=== PATIENT | female | born 1985 | race Caucasian/White ===

== ENCOUNTER 2017-01-17 10:45 | Emergency (ER) | payer BC, OTHER ==
[2017-01-17 10:52] VITALS: TEMP 97.4
[2017-01-17] MEDS ORDERED: SODIUM CHLORIDE 0.9% 1,000 ML IV STA ×2 (11:13→12:44)
[2017-01-17] MEDS ORDERED: SODIUM CHLORIDE 0.9% 500 ML IV STA (11:13)
[2017-01-17] MEDS ORDERED: ONDANSETRON 4 MG/2 ML VIAL IVP STA (11:13)
[2017-01-17] MEDS ORDERED: diphenhydrAMINE 50 MG/ML 1 ML VIAL IVP STA (11:14)
[2017-01-17] MEDS ORDERED: PYRIDOXINE 100 MG/ML 1 ML VIAL IVP STA (11:14)
[2017-01-17] MEDS: SODIUM CHLORIDE 0.9% 1,000 ML IV STA ×2 (11:19→12:49)
[2017-01-17 11:25] LABS: Basophils % (A) 0 %; CH 26.8; CHCM 32.9; Eosinophils # (A) 0.1 k/uL (0-0.7); Eosinophils % (A) 1 %; HCT 46.1 % (34.0-46.0); HDW 2.45; HGB 14.5 gm/dL (11.4-16.0); Luc # (Auto) 0.06; Luc % (Auto) 1; Lymphocytes # (A) 0.3 k/uL (1.0-4.8); Lymphocytes % (A) 4 %; MCH 25.8 pg (25.0-35.0); MCHC 31.4 g/dL (31.0-37.0); MCV 82.1 fL (80.0-100.0); Mean Platelet Volume 7.2; Monocytes # (A) 0.3 k/uL (0-1.0); Monocytes % (A) 4 %; Neutrophils # (A) 7.5 k/uL (1.3-7.7); Neutrophils % (A) 91 %; RBC 5.61 m/uL (3.80-5.40); RDW 14.9 % (11.5-15.5); WBC 8.3 k/uL (3.8-10.6); WBC (Perox) 8.24
--- NOTE | 2017-01-17 11:25 | ED ---
General Adult HPI - General Chief complaint: Nausea/Vomiting/Diarrhea Stated complaint: 16weeks preg nausea/vomiting Time Seen by Provider: 01/17/17 11:13 Source: patient, RN notes reviewed, old records reviewed Mode of arrival: ambulatory Limitations: no limitations - History of Present Illness Initial comments: This is a 31-year-old female to the ER for evaluation. This patient presents evaluation of nausea vomiting and diarrhea. Patient's positive 16 weeks . Patient prior . No problems with nausea vomiting or diarrhea during . Patient also admits to [facility] with similar illnesses. No fevers. No travel history. Patient denies any significant pain - Related Data Home Medications Medication Instructions Recorded Confirmed Vit No.124/Iron/Folic 1 tab PO HS 01/02/15 01/17/17 [ Vitamin Tablet] Allergies Allergy/AdvReac Type Severity Reaction Status Date / Time Penicillins AdvReac Rash/Hives Verified 01/17/17 11:55 Review of Systems ROS Statement: Those systems with pertinent positive or pertinent negative responses have been documented in the HPI. ROS Other: All systems not noted in ROS Statement are negative. Past Medical History Past Medical History: No Reported History History of Any Multi-Drug Resistant Organisms: None Reported Past Surgical History: Cholecystectomy Additional Past Surgical History / Comment(s): cauterization of the cervix, D&C Past Anesthesia/Blood Transfusion Reactions: No Reported Reaction Past Psychological History: Anxiety Smoking Status: Never smoker Past Alcohol Use History: None Reported Past Drug Use History: None Reported - Past Family History Mother Family Medical History: Hypertension Additional Family Medical History / Comment(s): M.S. Father Family Medical History: Hypertension Additional Family Medical History / Comment(s): acute leukemia General Exam Limitations: no limitations General appearance: alert, in no apparent distress Head exam: Present: atraumatic, normocephalic, normal inspection Eye exam: Present: normal appearance, PERRL, EOMI. Absent: scleral icterus, conjunctival injection, periorbital swelling ENT exam: Present: normal exam, mucous membranes moist Neck exam: Present: normal inspection. Absent: tenderness, meningismus, lymphadenopathy Respiratory exam: Present: normal lung sounds bilaterally. Absent: respiratory distress, wheezes, rales, rhonchi, stridor Cardiovascular Exam: Present: normal rhythm, tachycardia, normal heart sounds. Absent: systolic murmur, diastolic murmur, rubs, gallop, clicks GI/Abdominal exam: Present: soft, normal bowel sounds. Absent: distended, tenderness, guarding, rebound, rigid Extremities exam: Present: normal inspection, full ROM, normal capillary refill. Absent: tenderness, pedal edema, joint swelling, calf tenderness Back exam: Present: normal inspection Neurological exam: Present: alert, oriented X3, CN II-XII intact Psychiatric exam: Present: normal affect, normal mood Skin exam: Present: warm, dry, intact, normal color. Absent: rash Course Vital Signs 01/17/17 10:50 Temperature 97.4 F L Pulse Rate 120 H Respiratory 18 Rate Blood Pressure 117/78 O2 Sat by Pulse 98 Oximetry - Reevaluation(s) Reevaluation #1: 01/17/17 12:45 heart tones done at bedside Reevaluation #2: 01/17/17 12:45 Patient is doing better with no active vomiting or diarrhea Medical Decision Making - Medical Decision Making 31 female to ER for evaluation regards to nausea vomiting diarrhea, patient had exposure to sick contacts that she lives with. Patient's family members have similar symptoms. Heart tones are positive labwork is normal mildly dehydrated on exam, patient given adequate hydration here in the emergency room and feeling much improved. Will be discharged home - Lab Data Result diagrams: 01/17/17 11:14 01/17/17 11:14 Lab Results 01/17/17 01/17/17 Range/Units 11:14 11:14 WBC 8.3 (3.8-10.6) k/uL RBC 5.61 H (3.80-5.40) m/uL Hgb 14.5 (11.4-16.0) gm/dL Hct 46.1 H (34.0-46.0) % MCV 82.1 (80.0-100.0) fL MCH 25.8 (25.0-35.0) pg MCHC 31.4 (31.0-37.0) g/dL RDW 14.9 (11.5-15.5) % Plt Count 247 (150-450) k/uL Neutrophils % 91 % Lymphocytes % 4 % Monocytes % 4 % Eosinophils % 1 % Basophils % 0 % Neutrophils # 7.5 (1.3-7.7) k/uL Lymphocytes # 0.3 L (1.0-4.8) k/uL Monocytes # 0.3 (0-1.0) k/uL Eosinophils # 0.1 (0-0.7) k/uL Basophils # 0.0 (0-0.2) k/uL Sodium 140 (137-145) mmol/L Potassium 3.9 (3.5-5.1) mmol/L Chloride 108 H (98-107) mmol/L Carbon Dioxide 15 L (22-30) mmol/L Anion Gap 17 mmol/L BUN 11 (7-17) mg/dL Creatinine 0.53 (0.52-1.04) mg/dL Est GFR (MDRD) Af Amer >60 (>60 ml/min/1.73 sqM) Est GFR (MDRD) Non-Af >60 (>60 ml/min/1.73 sqM) Glucose 118 H (74-99) mg/dL Calcium 9.4 (8.4-10.2) mg/dL Phosphorus 5.2 H (2.5-4.5) mg/dL Magnesium 1.6 (1.6-2.3) mg/dL Total Bilirubin 0.5 (0.2-1.3) mg/dL AST 17 (14-36) U/L ALT 24 (9-52) U/L Alkaline Phosphatase 66 (38-126) U/L Total Protein 7.5 (6.3-8.2) g/dL Albumin 4.1 (3.5-5.0) g/dL Disposition Clinical Impression: Food poisoning, Dehydration, Gastroenteritis Disposition: HOME SELF-CARE Condition: Good Instructions: Acute Nausea and Vomiting (ED), Acute Diarrhea (ED) Referrals: None,Stated [Primary Care Provider] - 1-2 days
[2017-01-17 11:37] LABS: ALT 24 U/L (9-52); AST 17 U/L (14-36); Alkaline Phosphatase 66 U/L (38-126); Anion Gap 17 mmol/L; Blood Urea Nitrogen 11 mg/dL (7-17); Calcium 9.4 mg/dL (8.4-10.2); Carbon Dioxide 15 mmol/L (22-30); Chloride 108 mmol/L (98-107); Glucose 118 mg/dL (74-99); Magnesium 1.6 mg/dL (1.6-2.3); Non-African American GFR(MDRD) >60 (>60 ml/min/1.73 sqM); Phosphorus 5.2 mg/dL (2.5-4.5); Potassium 3.9 mmol/L (3.5-5.1); Sodium 140 mmol/L (137-145); Total Bilirubin 0.5 mg/dL (0.2-1.3); Total Protein 7.5 g/dL (6.3-8.2)
[2017-01-17 13:20] VITALS: BP 110/72; PULSE 96; RESP 16
[2017-01-17 13:44] LABS: Appearance,Urine Cloudy (Clear); Bilirubin,Urine Negative (Negative); Glucose,Urine (UA) Negative (Negative); Ketones,Urine 4+ (Negative); Leukocyte Esterase,Urine Negative (Negative); Mucus,Urine Many /hpf; Nitrite,Urine Negative (Negative); PH, Urine 5.5 (5.0-8.0); Particle Count 15647; Protein,Urine 1+ (Negative); RBC,Urine <1 /hpf (0-5); Specific Gravity,Urine 1.028 (1.001-1.035); Squamous Epithelial Cell,Urine 7 /hpf (0-4); UA Billing (MACRO vs. MICRO) MICRO; Urobilinogen,Urine <2.0 mg/dL (<2.0); WBC,Urine 3 /hpf (0-5)
== END 2017-01-17 13:48 | disposition home or self-care (01) ==
LOC: EC 10:45
DX: O99.612 Diseases of the digestive system complicating pregnancy, second trimester (principal); K52.9 Noninfective gastroenteritis and colitis, unspecified; O99.282 Endocrine, nutritional and metabolic diseases complicating pregnancy, second trimester; E86.0 Dehydration; O98.812 Other maternal infectious and parasitic diseases complicating pregnancy, second trimester; A05.9 Bacterial foodborne intoxication, unspecified; O99.89 Other specified diseases and conditions complicating pregnancy, childbirth and the puerperium; R00.0 Tachycardia, unspecified; Z79.899 Other long term (current) drug therapy; Z88.0 Allergy status to penicillin; Z90.49 Acquired absence of other specified parts of digestive tract; Z3A.16 16 weeks gestation of pregnancy; Z53.20 Procedure and treatment not carried out because of patient's decision for unspecified reasons
CPT/HCPCS: 36415; 80053; 83735; 84100; 85025; 81001; 87086; 99284; 96374; 96375; 96361 ×2; J3415; J2405

== ENCOUNTER 2017-04-12 13:18 | Outpatient (CLI) | payer OTHER ==
[2017-04-12 14:26] VITALS: BP 131/80; PULSE 96; RESP 14; TEMP 97.9
--- NOTE | 2017-05-05 16:45 | P.MSEPDOC ---
Presenting Problems - Arrival Data Date of Arrival on Unit: 04/12/17 Time of Arrival on Unit: 13:19 Mode of Transport: Ambulatory - Complaint OB-Reason for Admission/Chief Complaint: Rule Out PROM Comment: muscle pull and r/o prom. damp since yesterday Medical History - Information : 4 Para: 1 Term: 0 : 0 Abortions: Spontaneous or Elective: 2 Number of Living Children: 1 - Gestational Age Gestational Age by JUSTIN (wks/days): 28 Weeks and 5 Days Review of Systems - Review of Systems Constitutional: No problems Breast: No problems ENT: No problems Cardiovascular: No problems Respiratory: No problems Gastrointestinal: No problems Genitourinary: No problems Musculoskeletal: No problems Neurological: No problems Skin: No problems Vital Signs - Temperature Temperature: 97.9 F Temperature Source: Temporal Artery Scan - Pulse Right Brachial Pulse Rate: 96 Pulse Assessment Method: Automatic Cuff - Respirations Respiratory Rate: 14 Oxygen Delivery Method: Room Air - Blood Pressure Right Arm Blood Pressure: 131/80 Blood Pressure Mean: 97 Blood Pressure Source: Automatic Cuff Medical Screen Scoring (Pre) - Cervical Exam Dilation: Exam Deferred - Uterine Contractions Frequency: N/A Duration: N/A Intensity: N/A - Maternal Vital Signs Maternal Temperature: N/A Maternal Blood Pressure: N/A Signs of Preeclampsia: N/A Maternal Respirations: N/A - Pain Assessment Pain Location and Character: Left, Right, Lateral, Abdomen Pain Scale Used: Numeric (1 - 10) Pain Intensity: 5 Pain Description: *Acute Pain Frequency: Frequent Pain Duration: 2 Pain Duration Units: Days Pain Behavior: None Exhibited Pain Aggravating Factors: Activity - Maternal Trauma Maternal Trauma: N/A - Assessment Baseline FHR: 135 Heart Rate - NICHD Category: Category I (Normal) = 0 NST: Reactive Position: N/A Station: N/A - Total Score Total Score (Pre): 0 - Level of Risk Level of Risk: N/A Physician Notification (Pre) - Physician Notified Physician Notified Date: 04/12/17 Physician Notified Time: 13:57 Physician/Practitioner Notifed:: antonia Spoke With: antonia New Order Received: Yes - Notification Comment Comment: pt may be discharged home with instruction, discuss comfort measures Disposition - Disposition OB Disposition: Discharge to home Discharge Date: 04/12/17 Discharge Time: 14:10 I agree with the RN Medical Screening Exam: Yes Risk & Benefit of care provided described in d/c instruction: Yes Diagnosis: FALSE LABOR BEFORE 37 COMPLETED WEEKS OF GEST, THIRD TRI
== END 2017-04-12 14:10 | disposition home or self-care (01) ==
LOC: FBPOP 13:18
PROVIDERS: ATTEND Obstetrics & Gynecology Obstetrics
DX: O47.03 False labor before 37 completed weeks of gestation, third trimester (principal); Z3A.28 28 weeks gestation of pregnancy
CPT/HCPCS: 59025; 84112; 99213

== ENCOUNTER 2017-06-18 05:10 | Inpatient (IN) | payer OTHER ==
[2017-06-18] MEDS ORDERED: TERBUTALINE 1 MG/ML VIAL SQ PRN (05:53)
[2017-06-18] MEDS ORDERED: METHYLERGONOVINE 0.2 MG/ML 1 ML AMP IM PRN (05:53)
[2017-06-18] MEDS ORDERED: OXYTOCIN 10 UNIT/ML 1 ML VIAL IM PRN (05:53)
[2017-06-18] MEDS ORDERED: CARBOPROST TROMETHAMINE 250 MCG/ML 1 ML AMP IM PRN (05:53)
[2017-06-18] MEDS ORDERED: LIDOCAINE 1% (PF) 10 MG/ML (30 ML SDV) SQ PRN (05:53)
[2017-06-18] MEDS ORDERED: BUTORPHANOL 1 MG/ML 1 ML VIAL IV PRN (05:55)
[2017-06-18] MEDS ORDERED: OXYTOCIN 20 UNITS/1000 ML NS 1,000 ML IV SCH ×2 (06:00→08:15)
[2017-06-18] MEDS ORDERED: LACTATED RINGERS 1,000 ML IV SCH (06:00)
[2017-06-18 06:12] VITALS: BMI 38.2
[2017-06-18 06:12] LABS: Basophils % (A) 0 %; Eosinophils # (A) 0.1 k/uL (0-0.7); Eosinophils % (A) 1 %; HCT 38.9 % (34.0-46.0); HGB 12.6 gm/dL (11.4-16.0); Lymphocytes # (A) 2.1 k/uL (1.0-4.8); Lymphocytes % (A) 20 %; MCHC 32.4 g/dL (31.0-37.0); MCV 77.2 fL (80.0-100.0); Mean Platelet Volume 8.2; Microcytosis Slight; Monocytes # (A) 0.6 k/uL (0-1.0); Monocytes % (A) 6 %; Neutrophils # (A) 7.8 k/uL (1.3-7.7); Neutrophils % (A) 72 %; Platelet Count 233 k/uL (150-450); RBC 5.04 m/uL (3.80-5.40); RDW 15.7 % (11.5-15.5); WBC 10.8 k/uL (3.8-10.6)
[2017-06-18] MEDS ORDERED: BUPIVACAINE (PF) 0.25% 30 ML VIAL ONE (06:39)
[2017-06-18] MEDS ORDERED: SODIUM CHLORIDE 0.9% 100 ML BAG ONE (06:39)
[2017-06-18] MEDS ORDERED: fentaNYL (PF) 50 MCG/ML 5 ML AMP ONE (06:39)
[2017-06-18] MEDS ORDERED: ACETAMINOPHEN TAB 325 MG TAB PO PRN (08:12)
[2017-06-18] MEDS ORDERED: diphenhydrAMINE 50 MG/ML 1 ML VIAL IVP PRN ×2 (08:12)
[2017-06-18] MEDS ORDERED: WITCH HAZEL 1 EACH MED..PAD TOPICAL PRN (08:12)
[2017-06-18] MEDS ORDERED: ZOLPIDEM 5 MG TAB PO PRN (08:12)
[2017-06-18] MEDS ORDERED: SIMETHICONE 80 MG CHEWABLE PO PRN (08:12)
[2017-06-18] MEDS ORDERED: LANOLIN CREAM 5 GM TUBE TOPICAL PRN (08:12)
[2017-06-18] MEDS ORDERED: HYDROcodone/APAP 5-325MG 1 EACH TAB PO PRN (08:12)
[2017-06-18] MEDS ORDERED: HYDROCORTISONE 2.5% RECTAL CREAM 30 GM TUBE RECTAL PRN (08:12)
[2017-06-18] MEDS ORDERED: diphenhydrAMINE 25 MG CAP PO PRN (08:12)
[2017-06-18] MEDS ORDERED: BENZOCAINE/MENTHOL SPRAY 1 GM/SPRAY AEROSOL TOPICAL PRN (08:12)
[2017-06-18] MEDS ORDERED: diphenhydrAMINE 50 MG CAP PO PRN (08:12)
--- NOTE | 2017-06-18 08:18 | P.HPOB ---
History of Present Illness H&P Date: 06/18/17 Chief Complaint: 38-2/7 weeks, spontaneous rupture of membranes, labor The patient is a 32-year-old 4 para 1021 admitted at 38-2/7 weeks as established by last menstrual period and confirmed by second trimester ultrasound. She is admitted with documented spontaneous rupture of membranes in early active labor with all signs reassuring. Her has been uncomplicated though she carries a history of a LEEP procedure in the past which has not caused any issues during the . Group B strep status is negative. Obstetrical history: 4 para 1021 with 1 term vaginal delivery without complications proceeded by 2 early miscarriages one of which required D&C. Current statistics are listed in history present illness. EDC of was established by last menstrual period and confirmed by second trimester ultrasound. Laboratory workup demonstrates a blood type of O+ with a negative antibody screen. The remainder of laboratory workup was within normal limits. Rubella status is immune. Early Glucola was within normal limits as well as second trimester Glucola. Group B strep status is negative. Gynecologic history: Unremarkable with no history of any infections to include STDs. Review of Systems Review of systems is confined to history of present illness. Past Medical History Past Medical History: No Reported History History of Any Multi-Drug Resistant Organisms: None Reported Past Surgical History: Cholecystectomy Additional Past Surgical History / Comment(s): cauterization of the cervix, D&C Past Anesthesia/Blood Transfusion Reactions: No Reported Reaction Past Psychological History: Anxiety Smoking Status: Never smoker Past Alcohol Use History: None Reported Past Drug Use History: None Reported - Past Family History Mother Family Medical History: Hypertension Additional Family Medical History / Comment(s): M.S. Father Family Medical History: Hypertension Additional Family Medical History / Comment(s): acute leukemia Medications and Allergies Home Medications Medication Instructions Recorded Confirmed Type Vit No.124/Iron/Folic 1 tab PO HS 01/02/15 06/18/17 History [ Vitamin Tablet] Allergies Allergy/AdvReac Type Severity Reaction Status Date / Time Penicillins AdvReac Rash/Hives Verified 06/18/17 05:19 Exam - Vital Signs Vital signs: Vital Signs Temp Pulse Resp BP Pulse Ox 06/18/17 05:50 96.3 F L 90 18 143/91 98 06/18/17 05:47 96.3 F L 90 18 143/91 98 Intake and Output 06/17/17 06/18/17 06/18/17 22:59 06:59 14:59 Intake Total 1.85 Balance 1.85 Intake: Intake, IV Titration 1.85 Amount Oxytocin 20 Units/1000 ml 1.85 Ns 1,000 ml @ 1 MILLIUNIT/MIN 3 mls/hr IV .Q24H [facility] Rx#:[id number] Other: # Voids 1 Weight 97.976 kg In general, this is a well-developed, well-nourished white female in no acute distress. Her heart has a regular rhythm and rate without murmur. Her lungs are clear to auscultation bilaterally in all woods. Her abdomen is gravid, nondistended, has normal active bowel sounds, is soft, nontender, and without any palpable masses aside from uterine fundus. Her extremities without any cyanosis, clubbing, or significant edema and are nontender to palpation bilaterally. Digital cervical examination at the time of my presentation demonstrates her cervix to be completely dilated with the vertex in presentation at 0 to +1 station. Spontaneous rupture of membranes has been previously confirmed. Results Result Diagrams: 06/18/17 05:55 Abnormal Lab Results - Last 24 Hours (Table) 06/18/17 Range/Units 05:55 WBC 10.8 H (3.8-10.6) k/uL MCV 77.2 L (80.0-100.0) fL RDW 15.7 H (11.5-15.5) % Neutrophils # 7.8 H (1.3-7.7) k/uL Assessment and Plan (1) Active labor at term Current Visit: No Status: Acute Code(s): KCA3492 - SNOMED Code(s): 80633160 (2) Spontaneous rupture of amniotic membranes Current Visit: No Status: Acute Code(s): YBL8238 - SNOMED Code(s): 016528258 Plan: The patient has previously been admitted for active management of labor. An epidural catheter has been placed for analgesia. She has had reassuring markers throughout the entire labor process. I do anticipate normal spontaneous vaginal delivery in the very near future.
--- NOTE | 2017-06-18 08:21 | P.PROBDLV ---
Vaginal Delivery Note - . Vaginal Delivery Note: The patient is a 32-year-old 4 para 1021 admitted at 38-2/7 weeks by good dating parameters perches admitted with documented spontaneous rupture of membranes in early active labor with all signs reassuring. Her has been uncomplicated and group B strep status is negative. On labor and delivery , she was making rapid progress through the active phase of labor and had an epidural catheter placed for analgesia. She progressed to complete very quickly and then pushed over the course of 1 contraction to a normal spontaneous vaginal delivery of a viable 7 lbs. 3 oz. baby girl with Apgars of 8 at 1 minute and 9 at 5 minutes delivered in the right occiput anterior position. The placenta was delivered spontaneously, intact, and grossly normal with a grossly normal three-vessel cord inserted approximate 5 cm from the placental margin. There was some adherent clot to the outside of the amniotic membranes near the margin with the placental disc raising the suspicion for possible subclinical abruption of the placenta at presentation. There was a small first-degree midline perineal laceration which was repaired with a single [id number] stitch of 3-0 chromic catgut without difficulty. There were no other complications. All sponge, instrument, and needle counts were correct. The patient tolerated the procedure well and the both mother and baby are resting comfortably in recovery.
[2017-06-18] MEDS: IBUPROFEN 600 MG TAB PO PRN ×2 (12:05→18:13)
[2017-06-18 20:24] VITALS: RESP 16
[2017-06-19] MEDS: SENNOSIDES-DOCUSATE SODIUM 1 EACH TAB PO SCH ×2 (00:52→09:37)
[2017-06-19] MEDS: IBUPROFEN 600 MG TAB PO PRN (04:00)
[2017-06-19 08:14] VITALS: BP 138/88; PULSE 78; TEMP 97.9
--- NOTE | 2017-06-19 10:25 | P.DS ---
Providers Date of admission: 06/18/17 05:48 Expected date of discharge: 06/19/17 Attending physician: Latasha Shipman Primary care physician: Latasha Shipman - Discharge Diagnosis(es) (1) Active labor at term Current Visit: Yes Status: Acute (2) Spontaneous rupture of amniotic membranes Current Visit: Yes Status: Acute (3) Normal vaginal delivery Current Visit: Yes Status: Acute Hospital Course: The patient is a 32-year-old 4 para 1021 admitted at 38-2/7 weeks by good dating parameters. She is admitted with documented spontaneous rupture of membranes in early active labor with all signs reassuring. Her was uncomplicated and group B strep status is negative. On labor and delivery, she had an epidural catheter placed at the onset of active phase of labor. She made rapid progress to complete and then pushed over the course of 1 contraction to a normal spontaneous vaginal delivery of a viable 7 lbs. 3 oz. baby girl with Apgars of 8 at 1 minute and 9 at 5 minutes. Her course was unremarkable vital signs remaining stable and her temperature was afebrile throughout. She was deemed stable for discharge by day #1 and was discharged home to follow-up in the office in 6 weeks' time routinely. Discharge instructions included calling for any significantly increased bleeding or foul-smelling lochia, significantly increased fever or abdominal pain, perineal complaints, breast complaints, or anything else that concerned her. She was additionally instructed to have nothing in the vagina to include intercourse for at least 6 weeks time. She understood her instructions and agrees to follow up as noted above. Discharge medications included continued vitamins as she has opted to breast-feed. She was otherwise to use [id number] analgesic pain medications as needed. Maternal blood type is O + and rubella status is immune. Procedures: #1. Epidural analgesia #2. Normal spontaneous vaginal delivery #3. Repair of small perineal laceration Patient Condition at Discharge: Good Plan - Discharge Summary New Discharge Prescriptions: No Action Vit No.124/Iron/Folic [ Vitamin Tablet] 1 tab PO HS Discharge Medication List Vit No.124/Iron/Folic [ Vitamin Tablet] 1 tab PO HS 01/02/15 [ History] Follow up Appointment(s)/Referral(s): Latasha Shipman MD [Primary Care Provider] - 6 Weeks Discharge Disposition: HOME SELF-CARE
== END 2017-06-19 11:06 | disposition home or self-care (01) | DRG 775 ==
LOC: FBPOP 05:10 → 4FBP 05:48
PROVIDERS: ADMIT Obstetrics & Gynecology; ATTEND Obstetrics & Gynecology
PROC: 10E0XZZ Delivery of Products of Conception, External Approach (ICD-10-PCS; principal; 2017-06-18)
PROC: 3E0R3NZ Introduction of Analgesics, Hypnotics, Sedatives into Spinal Canal, Percutaneous Approach (ICD-10-PCS; principal; 2017-06-18)
PROC: 0HQ9XZZ Repair Perineum Skin, External Approach (ICD-10-PCS; principal; 2017-06-18)
PROC: 00HU33Z Insertion of Infusion Device into Spinal Canal, Percutaneous Approach (ICD-10-PCS; principal; 2017-06-18)
DX: O70.0 First degree perineal laceration during delivery (principal); Z37.0 Single live birth; Z3A.38 38 weeks gestation of pregnancy; Z88.0 Allergy status to penicillin
CPT/HCPCS: 59025; 84112; 85025; 88307; 99213

== ENCOUNTER → 2018-08-09 | Outpatient (CLI) | payer OTHER ==
--- NOTE | 2018-08-09 13:20 | MM ---
Reason for exam: screening (asymptomatic). Baseline mammogram. History: Family history of breast cancer in 2 grandfathers at age 60 and breast cancer in aunt at age 60. Took hormonal contraceptives for 9 years beginning at age 14. Physical Findings: Nurse did not find any significant physical abnormalities on exam. MG Screening Mammo w CAD Bilateral CC and MLO view(s) were taken. The breast tissue is heterogeneously dense. This may lower the sensitivity of mammography. No suspicious abnormality. These results were verbally communicated with the patient and result sheet given to the patient on 08/09/18. ASSESSMENT: Negative, BI-RAD 1 RECOMMENDATION: Routine screening mammogram of both breasts in 1 year.
== END | disposition home or self-care (01) ==
LOC: RADMAMWWP 12:43
PROVIDERS: ATTEND Obstetrics & Gynecology
DX: Z12.31 Encounter for screening mammogram for malignant neoplasm of breast (principal)
CPT/HCPCS: 77067

== ENCOUNTER → 2019-12-12 | Outpatient (CLI) | payer OTHER ==
--- NOTE | 2019-12-14 10:34 | MM ---
Reason for exam: screening (asymptomatic). Last mammogram was performed 1 year and 4 months ago. History: Family history of breast cancer in 2 grandfathers at age 60 and breast cancer in aunt at age 60. Took hormonal contraceptives for 9 years beginning at age 14. Physical Findings: A clinical breast exam by your physician is recommended on an annual basis and results should be correlated with mammographic findings. MG 3D Screening Mammo W/Cad Bilateral CC and MLO view(s) were taken. Prior study comparison: August 09, 2018, bilateral MG screening mammo w CAD. The breast tissue is heterogeneously dense. This may lower the sensitivity of mammography. There is no discrete abnormality. ASSESSMENT: Negative, BI-RAD 1 RECOMMENDATION: Routine screening mammogram of both breasts in 1 year.
== END | disposition home or self-care (01) ==
LOC: RADMAMWWP 16:17
PROVIDERS: ATTEND Obstetrics & Gynecology
DX: Z12.31 Encounter for screening mammogram for malignant neoplasm of breast (principal); Z80.3 Family history of malignant neoplasm of breast
CPT/HCPCS: 77063; 77067

== ENCOUNTER → 2020-05-26 | Outpatient (CLI) | payer OTHER | END | disposition home or self-care (01) | LOC: LABMAIN 11:49 | PROVIDERS: ATTEND Physician Assistant | DX: Z20.822 Contact with and (suspected) exposure to COVID-19 (principal) | CPT/HCPCS: 87635 ==

== ENCOUNTER → 2020-10-28 | Outpatient (CLI) | payer OTHER | END | disposition home or self-care (01) | LOC: LABMAIN 10:52 | PROVIDERS: ATTEND Physician Assistant | DX: Z20.822 Contact with and (suspected) exposure to COVID-19 (principal) | CPT/HCPCS: 87635 ==

== ENCOUNTER → 2021-07-26 | Outpatient (CLI) | payer OTHER ==
--- NOTE | 2021-07-29 09:08 | MM ---
Reason for Exam: Screening (asymptomatic). Last mammogram was performed 1 year(s) and 8 month(s) ago. Patient History: Menarche at age 11. First Full-Term at age 28. Late child-bearing (after 30). Hormonal Contraceptives for 9 years from age 14 until age 25. Maternal grandfather had breast cancer, age 60. Maternal grandfather had breast cancer, age 60. Paternal aunt had breast cancer, age 60. Risk Values: Mansi 5 year model risk: 0.6%. NCI Lifetime model risk: 13.7%. Prior Study Comparison: 08/09/2018 Bilateral Screening Mammogram, [facility]. 12/12/2019 Bilateral Screening Mammogram, [facility]. Tissue Density: The breast tissue is heterogeneously dense. This may lower the sensitivity of mammography. Findings: Analyzed By CAD. There is no suspicious group of microcalcifications or new suspicious mass in either breast. Overall Assessment: Negative, BI-RAD 1 Management: Screening Mammogram of both breasts in 1 year. A clinical breast exam by your physician is recommended on an annual basis and results should be correlated with mammographic findings. Electronically signed and approved by: Chucho Reilly M.D. Radiologis
== END | disposition home or self-care (01) ==
LOC: RADMAMWWP 15:41
PROVIDERS: ATTEND Obstetrics & Gynecology
DX: Z12.31 Encounter for screening mammogram for malignant neoplasm of breast (principal); Z80.3 Family history of malignant neoplasm of breast
CPT/HCPCS: 77063; 77067

== ENCOUNTER → 2022-08-08 | Outpatient (CLI) | payer OTHER ==
--- NOTE | 2022-08-11 10:51 | MM ---
Reason for Exam: Screening (asymptomatic). Last screening mammogram was performed 12 month(s) ago. Patient History: Menarche at age 11. First Full-Term at age 28. Late child-bearing (after 30). Hormonal Contraceptives for 9 years from age 14 until age 25. Maternal grandfather had breast cancer, age 60. Maternal grandfather had breast cancer, age 60. Paternal aunt had breast cancer, age 60. Paternal grandfather had breast cancer, age 60. Last menstrual period: 07/17/2022 Risk Values: Mansi 5 year model risk: 0.7%. NCI Lifetime model risk: 13.7%. Prior Study Comparison: 08/09/2018 Bilateral Screening Mammogram, [facility]. 12/12/2019 Bilateral Screening Mammogram, [facility]. 07/26/2021 Bilateral MG 3D screening mammo w/cad, [facility]. Tissue Density: There are scattered fibroglandular densities. Findings: Analyzed By CAD. Pattern appears symmetrical and stable. No significant interval change is evident. No suspicious groups of microcalcifications, spiculated or lobular masses, architectural distortion or other secondary signs of malignancy are mammographically apparent. Overall Assessment: Benign, BI-RAD 2 Management: Screening Mammogram of both breasts in 1 year. A negative mammogram report should not preclude additional follow up of suspicious palpable abnormalities. Patient should continue monthly self breast exam. A clinical breast exam by your physician is recommended on an annual basis and results should be correlated with mammographic findings. Electronically signed and approved by: Flaco Holt D.O. Radiologis
== END | disposition home or self-care (01) ==
LOC: RADMAMWWP 09:53
PROVIDERS: ATTEND Obstetrics & Gynecology
DX: Z12.31 Encounter for screening mammogram for malignant neoplasm of breast (principal); Z80.3 Family history of malignant neoplasm of breast
CPT/HCPCS: 77063; 77067

== ENCOUNTER → 2023-03-23 | Outpatient (CLI) | payer OTHER ==
--- NOTE | 2023-03-23 12:20 | CT ---
EXAMINATION TYPE: CT sinus wo con DATE OF EXAM: 03/23/2023 COMPARISON: None HISTORY: chronic sinusitis CT DLP: [address] of the paranasal sinuses was performed in the axial and coronal planes. Bone and soft tissue settings are submitted. The paranasal sinuses demonstrate normal aeration and development. The paranasal sinuses are free of mucosal thickening or air fluid level. The osteal meatal units are patent bilaterally. The nasal septum is deviated from left to right. Right-sided nasal septal spur is noted. No bony destructive changes are seen within the field of view. IMPRESSION: The nasal septum is deviated from left to right. Right-sided nasal septal spur is noted.
== END | disposition home or self-care (01) ==
LOC: RADCTMAIN 09:29
PROVIDERS: ATTEND Otolaryngology
DX: J34.2 Deviated nasal septum (principal); J34.89 Other specified disorders of nose and nasal sinuses; J32.0 Chronic maxillary sinusitis
CPT/HCPCS: 70486

== ENCOUNTER → 2023-10-23 | Outpatient (CLI) | payer OTHER ==
--- NOTE | 2023-10-25 12:41 | MM ---
Reason for Exam: Screening (asymptomatic). Last mammogram was performed 1 year(s) and 3 month(s) ago. Patient History: Menarche at age 11. First Full-Term at age 28. Late child-bearing (after 30). Currently using Hormonal Contraceptives, starting at age 14. Maternal grandfather had breast cancer, age 60. Maternal grandfather had breast cancer, age 60. Paternal aunt had breast cancer, age 60. Paternal grandfather had breast cancer, age 60. Risk Values: Mansi 5 year model risk: 0.8%. NCI Lifetime model risk: 13.6%. Prior Study Comparison: 12/12/2019 Bilateral Screening Mammogram, [facility]. 07/26/2021 Bilateral MG 3D screening mammo w/cad, [facility]. 08/08/2022 Bilateral MG 3D screening mammo w/cad, [facility]. Tissue Density: The breasts are almost entirely fatty. Findings: Analyzed By CAD. Right breast: There is no suspicious group of microcalcifications or new suspicious mass. Left breast: There is no suspicious group of microcalcifications or new suspicious mass. Overall Assessment: Negative, BI-RAD 1 Management: Screening Mammogram of both breasts in [address] [facility] will attempt to contact patient to return for supplemental views and ultrasound if indicated. Patient should continue monthly self-breast exams. A clinical breast exam by your physician is recommended on an annual basis. This exam should not preclude additional follow-up of suspicious palpable abnormalities. Note on Mansi scores and lifetime risk: 1. A Mansi score greater than 3% is considered moderate risk. If this is the case, consider specialist referral to assess eligibility for a risk reducing agent. 2. If overall lifetime risk for the development of breast cancer is 20% or higher, the patient may qualify for future screening with alternating mammogram and breast MRI. Electronically signed and approved by: Anirudh Conti DO
== END | disposition home or self-care (01) ==
LOC: RADMAMWWP 08:31
PROVIDERS: ATTEND Obstetrics & Gynecology
DX: Z12.31 Encounter for screening mammogram for malignant neoplasm of breast
CPT/HCPCS: 77063; 77067

== ENCOUNTER → 2024-04-20 | Outpatient (CLI) | payer OTHER ==
--- NOTE | 2024-04-20 13:39 | CA ---
Stress Echo Report Coral Matthews Age: 39 Gender: F : 1985 Exam Date: 04/20/2024 10:29 Exam Location: [facility] Ht (in): 63 Wt (lb): 235 Ordering Physician: Sadaf Pat DO Referring Physician: [facility] Supervisor: Jesus Guerra Technologist Procedure CPT: Indication: R00.2 palpitations ICD-9 Codes: Rhythm: Patient History: Cardiac Medications: metoprolol, montelukast, omperazole, zestor, zyrtec Medications in past 24 hours: Contrast: N/A Stress Results Protocol: Cheikh Total dose(mL): NA Exercise Duration (min:sec): 07:[address] Depression (mm): Angina Score: Huynh Score: METS: 9.3 Resting HR: 101 Resting BP: 128 / 85 Peak HR: 169 Peak BP: 173 / 62 Max Predicted HR: 179 94 % Max Predicted HR Target HR: 152 Double Product: [id number] Stress Summary: The patient's target heart rate was achieved BP Response: Reason for Termination: MAX EXERTION/TARGET HR Cardiac Symptoms: NO SYMPTOMS ECG Analysis Resting ECG: Normal sinus rhythm, normal ECG Stress ECG: No abnormal ST/T wave changes with exercise Arrhythmia: None Echo Analysis Resting Echo: Normal resting echocardiogram. Peak Echo Analysis: Normal wall thickening and motion MEASUREMENTS (Male/Female) Normal Values CONCLUSIONS 1. Good exercise tolerance with normal electrocardiographic response to exercise 2. Normal stress echocardiogram with no evidence of stress- induced ischemia Dr. Isamar Doyle MD (Electronically Signed) Final Date: 20 April 2024 13:38
== END | disposition home or self-care (01) ==
LOC: RADNMMAIN 09:52
PROVIDERS: ATTEND Family Medicine
DX: R00.2 Palpitations (principal)
CPT/HCPCS: 93351

== ENCOUNTER 2024-04-26 08:49 | Day surgery (SDC) | payer OTHER ==
[~2024-04-26 08:49] MED LIST: LIDOCAINE 1% (10MG/ML) FOR IV START INTRADERMA PRN
[2024-04-26] MEDS: IV FLUID CONTINUATION 1,000 ML IV ONE (10:00)
[2024-04-26 10:12] VITALS: TEMP 97.9
[2024-04-26] MEDS: LACTATED RINGERS 1,000 ML IV SCH (10:23)
[2024-04-26] MEDS ORDERED: LIDOCAINE 1% INJ 10MG/ML (20 ML MDV) ONE (10:53)
[2024-04-26] MEDS ORDERED: PROPOFOL 10 MG/ML 20 ML VIAL IV ONE (10:53)
--- NOTE | 2024-04-26 11:07 | P.PCN ---
Date of Procedure: 04/26/24 Procedure(s) Performed: BRIEF HISTORY: Patient is a 39-year-old, pleasant, white female scheduled for an upper endoscopy as a part evaluation of longstanding history of GERD. PROCEDURE PERFORMED: Esophagogastroduodenoscopy with biopsy PREOPERATIVE DIAGNOSIS: Longstanding history of GERD. IV sedation per anesthesia. PROCEDURE: After informed consent was obtained, the patient was brought into the endoscopy unit. IV sedation was administered by Anesthesia under continuous monitoring. Initially the Olympus GIF-140 video endoscope was inserted into the mouth. Esophagus intubated without any difficulty. It was gradually advanced into the stomach and duodenum and carefully examined. The bulb and the second part of the duodenum appeared normal. The scope at this time was withdrawn to the stomach, adequately insufflated with air, and upon careful examination, mucosa of the antrum had mild mottling of the mucosa consistent with gastritis and biopsies were done from this area. Mucosa of the, body, cardia and the fundus appeared normal. The scope was then withdrawn into the esophagus. The GE junction was located at 41 cm from the incisors. The esophagus appeared normal. There were no erosions or ulcerations seen and the patient tolerated the procedure well. IMPRESSION: 1. Mild antral gastritis. 2. Normal-appearing esophagus with no evidence of esophagitis or Guerra's esophagus. RECOMMENDATIONS: The findings of this examination were discussed with the patient as well as her family. She was advised to follow-up with the biopsy results. Continue with omeprazole 20 mg daily and follow antireflux measures.
[2024-04-26 11:42] VITALS: BP 126/83; PULSE 70; RESP 16
== END 2024-04-26 11:42 | disposition home or self-care (01) ==
LOC: ORWHC2ENDO 08:49
PROVIDERS: ATTEND Internal Medicine Gastroenterology
DX: K29.50 Unspecified chronic gastritis without bleeding (principal); K21.9 Gastro-esophageal reflux disease without esophagitis; I10 Essential (primary) hypertension; E78.5 Hyperlipidemia, unspecified; F17.200 Nicotine dependence, unspecified, uncomplicated; J30.2 Other seasonal allergic rhinitis; Z88.0 Allergy status to penicillin; Z79.899 Other long term (current) drug therapy
CPT/HCPCS: 81025; 88305; 43239; J2003; J2704